=== PATIENT | female | born 1950 | race Two or more races ===

== ENCOUNTER 2016-08-20 09:33 | Outpatient (CLI) | payer MEDICARE, BC | END 2016-08-20 23:59 | disposition home or self-care (01) | LOC: WOU 09:33 | PROVIDERS: ATTEND Specialist | DX: T81.89XD Other complications of procedures, not elsewhere classified, subsequent encounter (principal); G71.0 Muscular dystrophy; L97.221 Non-pressure chronic ulcer of left calf limited to breakdown of skin | CPT/HCPCS: A6197; A6402; G0463 ==

== ENCOUNTER 2016-08-27 10:55 | Outpatient (CLI) | payer MEDICARE, BC ==
[2016-08-28 12:24] LABS: *ANAANTI-SCLERODERMA-70 AB <0.2 AI (0.0-0.9)
[2016-08-29 11:34] LABS: *ANCANTIPROTEINASE 3 (PR-3) AB <3.5 U/mL (0.0-3.5)
== END 2016-08-27 23:59 | disposition home or self-care (01) ==
LOC: WOU 10:55
PROVIDERS: ATTEND Specialist
DX: T81.31XA Disruption of external operation (surgical) wound, not elsewhere classified, initial encounter (principal); L97.221 Non-pressure chronic ulcer of left calf limited to breakdown of skin; G71.0 Muscular dystrophy
CPT/HCPCS: 17250; 36415; 83520; 85652-TC; 86140-TC; 86225; 86235; 86256; 86431-TC; 87070-TC; 87075-TC; 87186-TC; A6197; A6402

== ENCOUNTER 2016-09-02 13:07 | Outpatient (CLI) | payer MEDICARE, BC | END 2016-09-02 23:59 | disposition home or self-care (01) | LOC: WOU 13:07 | PROVIDERS: ATTEND Specialist | DX: L97.221 Non-pressure chronic ulcer of left calf limited to breakdown of skin (principal) ==

== ENCOUNTER 2016-09-03 11:00 | Outpatient (CLI) | payer MEDICARE, BC | END 2016-09-03 23:59 | disposition home or self-care (01) | LOC: WOU 11:00 | PROVIDERS: ATTEND Specialist | DX: T81.31XD Disruption of external operation (surgical) wound, not elsewhere classified, subsequent encounter (principal); L97.221 Non-pressure chronic ulcer of left calf limited to breakdown of skin; G71.0 Muscular dystrophy; I87.2 Venous insufficiency (chronic) (peripheral) | CPT/HCPCS: 93923; A6402; A6452 ×2; G0463 ==

== ENCOUNTER 2016-09-10 14:15 | Outpatient (CLI) | payer MEDICARE, BC | END 2016-09-10 23:59 | disposition home or self-care (01) | LOC: WOU 14:15 | PROVIDERS: ATTEND Specialist | DX: T81.31XD Disruption of external operation (surgical) wound, not elsewhere classified, subsequent encounter (principal); L97.221 Non-pressure chronic ulcer of left calf limited to breakdown of skin; G71.0 Muscular dystrophy; I87.2 Venous insufficiency (chronic) (peripheral); Z85.828 Personal history of other malignant neoplasm of skin | CPT/HCPCS: A6402; A6452; G0463 ==

== ENCOUNTER 2016-09-17 10:52 | Outpatient (CLI) | payer MEDICARE, BC | END 2016-09-17 23:59 | disposition home or self-care (01) | LOC: WOU 10:52 | PROVIDERS: ATTEND Specialist | DX: T81.31XA Disruption of external operation (surgical) wound, not elsewhere classified, initial encounter (principal); T81.89XA Other complications of procedures, not elsewhere classified, initial encounter; L97.221 Non-pressure chronic ulcer of left calf limited to breakdown of skin; G71.0 Muscular dystrophy; E87.2 Acidosis | CPT/HCPCS: 15271; A6253; A6402; A6452 ==

== ENCOUNTER 2016-09-24 13:00 | Outpatient (CLI) | payer MEDICARE, BC | END 2016-09-24 23:59 | disposition home or self-care (01) | LOC: WOU 13:00 | PROVIDERS: ATTEND Specialist | DX: T81.89XA Other complications of procedures, not elsewhere classified, initial encounter (principal); T81.31XA Disruption of external operation (surgical) wound, not elsewhere classified, initial encounter; L97.221 Non-pressure chronic ulcer of left calf limited to breakdown of skin; G71.0 Muscular dystrophy; I87.2 Venous insufficiency (chronic) (peripheral) | CPT/HCPCS: 15271; A6253; A6402; A6452 ==

== ENCOUNTER 2016-10-01 13:45 | Outpatient (CLI) | payer MEDICARE, BC | END 2016-10-01 23:59 | disposition home or self-care (01) | LOC: WOU 13:45 | PROVIDERS: ATTEND Specialist | DX: T81.31XA Disruption of external operation (surgical) wound, not elsewhere classified, initial encounter (principal); L97.221 Non-pressure chronic ulcer of left calf limited to breakdown of skin; G71.0 Muscular dystrophy; I87.2 Venous insufficiency (chronic) (peripheral); T81.89XA Other complications of procedures, not elsewhere classified, initial encounter | CPT/HCPCS: 11042; 87070; 87077; 87186; A6209; A6402 ==

== ENCOUNTER 2016-10-06 11:22 | Outpatient (CLI) | payer MEDICARE, BC | END 2016-10-06 23:59 | disposition home or self-care (01) | LOC: WOU 11:22 | PROVIDERS: ATTEND Surgery | DX: T81.31XA Disruption of external operation (surgical) wound, not elsewhere classified, initial encounter (principal); T81.89XA Other complications of procedures, not elsewhere classified, initial encounter; L97.221 Non-pressure chronic ulcer of left calf limited to breakdown of skin; G71.0 Muscular dystrophy; Z85.9 Personal history of malignant neoplasm, unspecified | CPT/HCPCS: 11042; A6402 ×2 ==

== ENCOUNTER 2016-10-07 10:00 | Outpatient (CLI) | payer MEDICARE, BC | END 2016-10-07 23:59 | disposition home or self-care (01) | LOC: WOU 10:00 | PROVIDERS: ATTEND Surgery | DX: S81.802D Unspecified open wound, left lower leg, subsequent encounter (principal); X58.XXXD Exposure to other specified factors, subsequent encounter; M79.89 Other specified soft tissue disorders | CPT/HCPCS: 93925-TC; 93926-TC; 93971-TC ==

== ENCOUNTER 2016-10-08 11:58 | Outpatient (CLI) | payer MEDICARE, BC ==
[2016-10-08 12:30] LABS: BASOPHILS % (AUTO) 0.7 % (0.0-2.0); DIFF TOTAL % 100 %; EOSINOPHILS # (AUTO) 0.1 /CMM (0.0-0.7); EOSINOPHILS % (AUTO) 1.4 % (0.0-6.0); HEMATOCRIT 37 % (33-45); HEMOGLOBIN 11.4 g/dL (11.5-14.8); LYMPHOCYTES # (AUTO) 2.3 /CMM (0.8-4.8); LYMPHOCYTES % (AUTO) 35.4 % (20.0-44.0); MEAN CORPUSCULAR HEMOGLOBIN 21 PG (26.0-33.0); MEAN CORPUSCULAR HGB CONC 31 g/dl (31.0-36.0); MEAN CORPUSCULAR VOLUME 68 fL (82-100); MONOCYTES # (AUTO) 0.4 /CMM (0.1-1.30); MONOCYTES % (AUTO) 6.9 % (2.0-12.0); NEUTROPHILS # (AUTO) 3.6 /CMM (1.8-8.9); NEUTROPHILS % (AUTO) 55.6 % (43.0-81.0); PLATELET COUNT (AUTO) 271 /CMM (150-450); RED BLOOD CELL COUNT(AUTO) 5.51 MIL/uL (4.0-5.2); WHITE BLOOD COUNT (AUTO) 6.4 K/uL (4.3-11.0)
[2016-10-08 12:43] LABS: BAND % (MANUAL) 1 % (0.0-5.0); EOSINOPHILS % (MANUAL) 2 % (0-4); LYMPHOCYTES % (MANUAL) 39 % (16-48); PLATELET ESTIMATE ADEQUATE
[2016-10-08 12:44] LABS: ANISOCYTOSIS 2+; HYPOCHROMASIA 2+; MICROCYTOSIS 2+; SPHEROCYTES 1+
[2016-10-08 12:45] LABS: POLYCHROMASIA 1+
[2016-10-08 12:48] LABS: PREALBUMIN 14.9 MG/DL (18.0-35.7)
[2016-10-08 12:51] LABS: ALBUMIN 4.2 g/dL (3.4-5.0); BILIRUBIN,TOTAL 0.9 mg/dL (0.2-1.0); CALCIUM, SERUM 9.1 mg/dL (8.5-10.1); CREATININE 0.3 mg/dL (0.6-1.3); POTASSIUM 4.3 mmol/L (3.5-5.1); TOTAL PROTEIN, SERUM 7.7 g/dL (6.4-8.2)
== END 2016-10-08 23:59 | disposition home or self-care (01) ==
LOC: LAB 11:58
PROVIDERS: ATTEND Surgery
DX: L97.829 Non-pressure chronic ulcer of other part of left lower leg with unspecified severity (principal)
CPT/HCPCS: 36415; 80053-TC; 84134-TC; 85025-TC

== ENCOUNTER 2016-10-09 11:44 | Outpatient (CLI) | payer MEDICARE, BC | END 2016-10-09 23:59 | disposition home or self-care (01) | DX: T81.31XA Disruption of external operation (surgical) wound, not elsewhere classified, initial encounter (principal); I70.262 Atherosclerosis of native arteries of extremities with gangrene, left leg; L97.821 Non-pressure chronic ulcer of other part of left lower leg limited to breakdown of skin; G71.0 Muscular dystrophy; R60.0 Localized edema | CPT/HCPCS: 11042; 88305 ×2; 88312; A6209; A6402; J3490 ==

== ENCOUNTER 2016-10-16 11:50 | Outpatient (CLI) | payer MEDICARE, BC ==
[2016-10-16] MEDS ORDERED: ETHYL CHLORIDE SPRAY 1 EA BOTTLE TP ONE (13:30)
== END 2016-10-16 23:59 | disposition home or self-care (01) ==
LOC: WOU 11:50
PROVIDERS: ATTEND Surgery
DX: L97.221 Non-pressure chronic ulcer of left calf limited to breakdown of skin (principal); T81.89XD Other complications of procedures, not elsewhere classified, subsequent encounter; T81.31XD Disruption of external operation (surgical) wound, not elsewhere classified, subsequent encounter; I87.2 Venous insufficiency (chronic) (peripheral); G71.0 Muscular dystrophy; D56.3 Thalassemia minor; I70.209 Unspecified atherosclerosis of native arteries of extremities, unspecified extremity; Z85.828 Personal history of other malignant neoplasm of skin
CPT/HCPCS: 11042; A6209; A6402; J3490

== ENCOUNTER 2016-10-17 09:21 | Outpatient (CLI) | payer MEDICARE, BC ==
[2016-10-17] MEDS ORDERED: IV NS 0.9% 250 ML IV ONE (09:51)
[2016-10-17] MEDS ORDERED: IOHEXOL-350 100 ML VIAL IV ONE (09:51)
[2016-10-17] MEDS ORDERED: CT SWABBABLE VALVE TRANS SET 1 EA INFUS.SET MC ONE (09:51)
== END 2016-10-17 23:59 | disposition home or self-care (01) ==
LOC: CT 09:21
PROVIDERS: ATTEND Podiatrist Foot & Ankle Surgery
DX: S80.922A Unspecified superficial injury of left lower leg, initial encounter (principal); I73.9 Peripheral vascular disease, unspecified; I70.0 Atherosclerosis of aorta; M62.562 Muscle wasting and atrophy, not elsewhere classified, left lower leg; M62.561 Muscle wasting and atrophy, not elsewhere classified, right lower leg; R60.1 Generalized edema; X58.XXXA Exposure to other specified factors, initial encounter; Y99.8 Other external cause status; Y92.89 Other specified places as the place of occurrence of the external cause; Y93.89 Activity, other specified
CPT/HCPCS: 75635; J7050; Q9967

== ENCOUNTER 2016-10-23 15:45 | Outpatient (CLI) | payer MEDICARE, BC | END 2016-10-23 23:59 | disposition home or self-care (01) | LOC: WOU 15:45 | PROVIDERS: ATTEND Surgery | DX: T81.89XA Other complications of procedures, not elsewhere classified, initial encounter (principal); I70.203 Unspecified atherosclerosis of native arteries of extremities, bilateral legs; G71.0 Muscular dystrophy; R60.0 Localized edema; F32.9 Major depressive disorder, single episode, unspecified; L97.221 Non-pressure chronic ulcer of left calf limited to breakdown of skin; Z85.828 Personal history of other malignant neoplasm of skin; E88.09 Other disorders of plasma-protein metabolism, not elsewhere classified | CPT/HCPCS: A6209; A6402; G0463 ==

== ENCOUNTER 2016-10-30 14:47 | Outpatient (CLI) | payer MEDICARE, BC | END 2016-10-30 23:59 | disposition home or self-care (01) | LOC: WOU 14:47 | PROVIDERS: ATTEND Surgery | DX: T81.89XD Other complications of procedures, not elsewhere classified, subsequent encounter (principal); T81.31XD Disruption of external operation (surgical) wound, not elsewhere classified, subsequent encounter; L97.221 Non-pressure chronic ulcer of left calf limited to breakdown of skin; G71.0 Muscular dystrophy; F32.9 Major depressive disorder, single episode, unspecified; R45.4 Irritability and anger; Z91.19 Patient's noncompliance with other medical treatment and regimen; I70.209 Unspecified atherosclerosis of native arteries of extremities, unspecified extremity | CPT/HCPCS: 11043; A6402; J3490 ==

== ENCOUNTER 2016-11-03 12:30 | Outpatient (CLI) | payer MEDICARE, BC | END 2016-11-03 23:59 | disposition home or self-care (01) | LOC: WOU 12:30 | PROVIDERS: ATTEND Surgery | DX: T81.31XD Disruption of external operation (surgical) wound, not elsewhere classified, subsequent encounter (principal); T81.89XD Other complications of procedures, not elsewhere classified, subsequent encounter; G71.0 Muscular dystrophy; L97.221 Non-pressure chronic ulcer of left calf limited to breakdown of skin; I70.209 Unspecified atherosclerosis of native arteries of extremities, unspecified extremity; F32.9 Major depressive disorder, single episode, unspecified; R45.4 Irritability and anger; L53.9 Erythematous condition, unspecified; R60.0 Localized edema | CPT/HCPCS: A6197; A6402; G0463 ==

== ENCOUNTER 2016-11-04 11:33 | Outpatient (CLI) | payer MEDICARE, BC | END 2016-11-04 23:59 | disposition home or self-care (01) | LOC: WOU 11:33 | PROVIDERS: ATTEND Surgery | DX: M79.605 Pain in left leg (principal); M79.89 Other specified soft tissue disorders | CPT/HCPCS: 93971-TC ==

== ENCOUNTER 2016-11-04 14:45 | Outpatient (CLI) | payer MEDICARE, BC | END 2016-11-04 23:59 | disposition home or self-care (01) | LOC: VASLAB 14:45 | PROVIDERS: ATTEND Surgery Vascular Surgery | DX: T81.89XA Other complications of procedures, not elsewhere classified, initial encounter (principal); L03.116 Cellulitis of left lower limb; D56.3 Thalassemia minor; G71.0 Muscular dystrophy; M81.0 Age-related osteoporosis without current pathological fracture; Z85.828 Personal history of other malignant neoplasm of skin | CPT/HCPCS: A6197; A6402; G0463 ==

== ENCOUNTER 2016-11-06 11:04 | Outpatient (CLI) | payer MEDICARE, BC | END 2016-11-06 23:59 | disposition home or self-care (01) | LOC: WOU 11:04 | PROVIDERS: ATTEND Podiatrist Foot & Ankle Surgery | DX: T81.31XD Disruption of external operation (surgical) wound, not elsewhere classified, subsequent encounter (principal); L97.221 Non-pressure chronic ulcer of left calf limited to breakdown of skin; G71.0 Muscular dystrophy; I87.2 Venous insufficiency (chronic) (peripheral) | CPT/HCPCS: 11042; A6402; A6452 ==

== ENCOUNTER 2016-11-13 11:00 | Outpatient (CLI) | payer MEDICARE, BC | END 2016-11-13 23:59 | disposition home or self-care (01) | LOC: WOU 11:00 | PROVIDERS: ATTEND Podiatrist Foot & Ankle Surgery | DX: G71.0 Muscular dystrophy (principal); T81.89XD Other complications of procedures, not elsewhere classified, subsequent encounter; I70.209 Unspecified atherosclerosis of native arteries of extremities, unspecified extremity; I87.2 Venous insufficiency (chronic) (peripheral); Z85.9 Personal history of malignant neoplasm, unspecified | CPT/HCPCS: 11042; A6402 ==

== ENCOUNTER 2016-11-20 11:59 | Outpatient (CLI) | payer MEDICARE, BC | END 2016-11-20 23:59 | disposition home or self-care (01) | LOC: WOU 11:59 | PROVIDERS: ATTEND Surgery | DX: T81.89XA Other complications of procedures, not elsewhere classified, initial encounter (principal); G71.0 Muscular dystrophy; I87.2 Venous insufficiency (chronic) (peripheral); Z85.828 Personal history of other malignant neoplasm of skin; I70.209 Unspecified atherosclerosis of native arteries of extremities, unspecified extremity; R60.0 Localized edema; F32.9 Major depressive disorder, single episode, unspecified; R45.4 Irritability and anger | CPT/HCPCS: 11042; A6209; A6402 ==

== ENCOUNTER 2016-11-27 13:29 | Outpatient (CLI) | payer MEDICARE, BC | END 2016-11-27 23:59 | disposition home or self-care (01) | LOC: WOU 13:29 | PROVIDERS: ATTEND Surgery | DX: T81.89XA Other complications of procedures, not elsewhere classified, initial encounter (principal); G71.0 Muscular dystrophy; Z85.828 Personal history of other malignant neoplasm of skin; I70.209 Unspecified atherosclerosis of native arteries of extremities, unspecified extremity; R60.0 Localized edema; F32.9 Major depressive disorder, single episode, unspecified; R45.4 Irritability and anger; T81.31XD Disruption of external operation (surgical) wound, not elsewhere classified, subsequent encounter; L97.221 Non-pressure chronic ulcer of left calf limited to breakdown of skin; D56.3 Thalassemia minor | CPT/HCPCS: 11042; A6402 ==

== ENCOUNTER 2016-12-04 13:02 | Outpatient (CLI) | payer MEDICARE, BC | END 2016-12-04 23:59 | disposition home or self-care (01) | LOC: WOU 13:02 | PROVIDERS: ATTEND Surgery | DX: T81.89XA Other complications of procedures, not elsewhere classified, initial encounter (principal); G71.0 Muscular dystrophy; Z85.828 Personal history of other malignant neoplasm of skin; I70.209 Unspecified atherosclerosis of native arteries of extremities, unspecified extremity; R60.0 Localized edema; F32.9 Major depressive disorder, single episode, unspecified; R45.4 Irritability and anger; T81.31XD Disruption of external operation (surgical) wound, not elsewhere classified, subsequent encounter; L97.221 Non-pressure chronic ulcer of left calf limited to breakdown of skin; D56.3 Thalassemia minor | CPT/HCPCS: 11042; A6402 ==

== ENCOUNTER 2016-12-11 13:45 | Outpatient (CLI) | payer MEDICARE, BC | END 2016-12-11 23:59 | disposition home or self-care (01) | LOC: WOU 13:45 | PROVIDERS: ATTEND Surgery | DX: L97.221 Non-pressure chronic ulcer of left calf limited to breakdown of skin (principal); T81.31XD Disruption of external operation (surgical) wound, not elsewhere classified, subsequent encounter; G71.0 Muscular dystrophy; T81.89XD Other complications of procedures, not elsewhere classified, subsequent encounter; R60.0 Localized edema; F32.9 Major depressive disorder, single episode, unspecified; R45.4 Irritability and anger; I73.9 Peripheral vascular disease, unspecified | CPT/HCPCS: 15002; 15110; A6402 ==

== ENCOUNTER 2016-12-18 13:15 | Outpatient (CLI) | payer MEDICARE, BC | END 2016-12-18 23:59 | disposition home or self-care (01) | LOC: WOU 13:15 | PROVIDERS: ATTEND Surgery | DX: T81.31XD Disruption of external operation (surgical) wound, not elsewhere classified, subsequent encounter (principal); L97.221 Non-pressure chronic ulcer of left calf limited to breakdown of skin; G71.0 Muscular dystrophy; R60.0 Localized edema; I73.9 Peripheral vascular disease, unspecified; F32.9 Major depressive disorder, single episode, unspecified; R45.4 Irritability and anger | CPT/HCPCS: A6209; A6253; A6402; G0463 ==

== ENCOUNTER → 2016-12-25 | Outpatient (CLI) | payer MEDICARE, BC | END | disposition home or self-care (01) | LOC: WOU 13:50 | PROVIDERS: ATTEND Surgery | DX: Z48.817 Encounter for surgical aftercare following surgery on the skin and subcutaneous tissue (principal); G71.0 Muscular dystrophy; F32.9 Major depressive disorder, single episode, unspecified; R45.4 Irritability and anger; R60.0 Localized edema; I73.9 Peripheral vascular disease, unspecified; Z85.828 Personal history of other malignant neoplasm of skin | CPT/HCPCS: A6209; A6402; G0463 ==

== ENCOUNTER 2017-01-01 14:19 | Outpatient (CLI) | payer MEDICARE, BC | END 2017-01-01 23:59 | disposition home or self-care (01) | LOC: WOU 14:19 | PROVIDERS: ATTEND Surgery | DX: L97.221 Non-pressure chronic ulcer of left calf limited to breakdown of skin (principal); T81.31XD Disruption of external operation (surgical) wound, not elsewhere classified, subsequent encounter; G71.0 Muscular dystrophy; Z85.9 Personal history of malignant neoplasm, unspecified; I70.209 Unspecified atherosclerosis of native arteries of extremities, unspecified extremity; R60.0 Localized edema; F32.9 Major depressive disorder, single episode, unspecified; R45.4 Irritability and anger | CPT/HCPCS: A6209; A6402 ×2; G0463 ==

== ENCOUNTER 2017-01-08 13:55 | Outpatient (CLI) | payer MEDICARE, BC | END 2017-01-08 23:59 | disposition home or self-care (01) | LOC: WOU 13:55 | PROVIDERS: ATTEND Surgery | DX: T81.31XD Disruption of external operation (surgical) wound, not elsewhere classified, subsequent encounter (principal); L97.221 Non-pressure chronic ulcer of left calf limited to breakdown of skin; G71.0 Muscular dystrophy; Z85.9 Personal history of malignant neoplasm, unspecified; I70.209 Unspecified atherosclerosis of native arteries of extremities, unspecified extremity; R60.0 Localized edema; F32.9 Major depressive disorder, single episode, unspecified; R45.4 Irritability and anger | CPT/HCPCS: A6209; A6402; G0463 ==

== ENCOUNTER 2017-01-15 13:35 | Outpatient (CLI) | payer MEDICARE, BC | END 2017-01-15 23:59 | disposition home or self-care (01) | LOC: WOU 13:35 | PROVIDERS: ATTEND Surgery | DX: T81.31XD Disruption of external operation (surgical) wound, not elsewhere classified, subsequent encounter (principal); L97.221 Non-pressure chronic ulcer of left calf limited to breakdown of skin; G71.0 Muscular dystrophy; I70.209 Unspecified atherosclerosis of native arteries of extremities, unspecified extremity; R60.0 Localized edema; F32.9 Major depressive disorder, single episode, unspecified; R45.4 Irritability and anger | CPT/HCPCS: A6209; A6402; G0463 ==

== ENCOUNTER 2017-01-22 13:40 | Outpatient (CLI) | payer MEDICARE, BC | END 2017-01-22 23:59 | disposition home or self-care (01) | LOC: WOU 13:40 | PROVIDERS: ATTEND Surgery | DX: T81.31XD Disruption of external operation (surgical) wound, not elsewhere classified, subsequent encounter (principal); L97.221 Non-pressure chronic ulcer of left calf limited to breakdown of skin; G71.0 Muscular dystrophy; I70.209 Unspecified atherosclerosis of native arteries of extremities, unspecified extremity; R60.0 Localized edema; F32.9 Major depressive disorder, single episode, unspecified; R45.4 Irritability and anger | CPT/HCPCS: A6209; A6402; G0463 ==

== ENCOUNTER 2017-01-29 13:52 | Outpatient (CLI) | payer MEDICARE, BC | END 2017-01-29 23:59 | disposition home or self-care (01) | LOC: WOU 13:52 | PROVIDERS: ATTEND Surgery | DX: T81.31XD Disruption of external operation (surgical) wound, not elsewhere classified, subsequent encounter (principal); L97.221 Non-pressure chronic ulcer of left calf limited to breakdown of skin; G71.0 Muscular dystrophy; I70.209 Unspecified atherosclerosis of native arteries of extremities, unspecified extremity; R60.0 Localized edema; F32.9 Major depressive disorder, single episode, unspecified; R45.4 Irritability and anger | CPT/HCPCS: 97597; A6209 ×3 ==

== ENCOUNTER 2017-02-05 13:11 | Outpatient (CLI) | payer MEDICARE, BC | END 2017-02-05 23:59 | disposition home or self-care (01) | LOC: WOU 13:11 | PROVIDERS: ATTEND Surgery | DX: T81.31XD Disruption of external operation (surgical) wound, not elsewhere classified, subsequent encounter (principal); L97.221 Non-pressure chronic ulcer of left calf limited to breakdown of skin; G71.0 Muscular dystrophy; I70.209 Unspecified atherosclerosis of native arteries of extremities, unspecified extremity; R45.4 Irritability and anger; F32.9 Major depressive disorder, single episode, unspecified; R60.0 Localized edema | CPT/HCPCS: 11042; A6209; A6402 ==

== ENCOUNTER 2017-02-12 13:47 | Outpatient (CLI) | payer MEDICARE, BC | END 2017-02-12 23:59 | disposition home or self-care (01) | LOC: WOU 13:47 | PROVIDERS: ATTEND Surgery | DX: T81.31XD Disruption of external operation (surgical) wound, not elsewhere classified, subsequent encounter (principal); L97.221 Non-pressure chronic ulcer of left calf limited to breakdown of skin; G71.0 Muscular dystrophy; T81.89XD Other complications of procedures, not elsewhere classified, subsequent encounter; I70.209 Unspecified atherosclerosis of native arteries of extremities, unspecified extremity; F32.9 Major depressive disorder, single episode, unspecified; R45.4 Irritability and anger; R60.0 Localized edema | CPT/HCPCS: A6209; A6402; G0463 ==

== ENCOUNTER 2017-02-26 13:30 | Outpatient (CLI) | payer MEDICARE, BC | END 2017-02-26 23:59 | disposition home or self-care (01) | LOC: WOU 13:30 | PROVIDERS: ATTEND Surgery | DX: T81.31XD Disruption of external operation (surgical) wound, not elsewhere classified, subsequent encounter (principal); L97.221 Non-pressure chronic ulcer of left calf limited to breakdown of skin; G71.0 Muscular dystrophy; I73.9 Peripheral vascular disease, unspecified; F32.9 Major depressive disorder, single episode, unspecified; R45.4 Irritability and anger | CPT/HCPCS: A6209 ×2; A6402; G0463 ==

== ENCOUNTER 2017-03-12 13:10 | Outpatient (CLI) | payer MEDICARE, BC | END 2017-03-12 23:59 | disposition home or self-care (01) | LOC: WOU 13:10 | PROVIDERS: ATTEND Surgery | DX: T81.31XD Disruption of external operation (surgical) wound, not elsewhere classified, subsequent encounter (principal); L97.221 Non-pressure chronic ulcer of left calf limited to breakdown of skin; G71.0 Muscular dystrophy; I73.9 Peripheral vascular disease, unspecified; F32.9 Major depressive disorder, single episode, unspecified; R45.4 Irritability and anger | CPT/HCPCS: A6209; A6402; G0463 ==

== ENCOUNTER 2017-04-02 13:00 | Outpatient (CLI) | payer MEDICARE, BC | END 2017-04-02 23:59 | disposition home or self-care (01) | LOC: WOU 13:00 | PROVIDERS: ATTEND Surgery | DX: Z48.817 Encounter for surgical aftercare following surgery on the skin and subcutaneous tissue (principal); G71.0 Muscular dystrophy; F32.9 Major depressive disorder, single episode, unspecified; R45.4 Irritability and anger; I70.209 Unspecified atherosclerosis of native arteries of extremities, unspecified extremity | CPT/HCPCS: G0463 ==

== ENCOUNTER 2017-04-23 13:00 | Outpatient (CLI) | payer MEDICARE, BC | END 2017-04-23 23:59 | disposition home or self-care (01) | LOC: WOU 13:00 | PROVIDERS: ATTEND Surgery | DX: Z09 Encounter for follow-up examination after completed treatment for conditions other than malignant neoplasm (principal); R60.0 Localized edema; I70.209 Unspecified atherosclerosis of native arteries of extremities, unspecified extremity; L53.9 Erythematous condition, unspecified; F32.9 Major depressive disorder, single episode, unspecified; R45.4 Irritability and anger | CPT/HCPCS: A6402; G0463 ==

== ENCOUNTER 2017-04-30 13:33 | Outpatient (CLI) | payer MEDICARE, BC | END 2017-04-30 23:59 | disposition home or self-care (01) | LOC: WOU 13:33 | PROVIDERS: ATTEND Surgery | DX: T81.31XA Disruption of external operation (surgical) wound, not elsewhere classified, initial encounter (principal); I70.209 Unspecified atherosclerosis of native arteries of extremities, unspecified extremity; L53.9 Erythematous condition, unspecified; F32.9 Major depressive disorder, single episode, unspecified; R45.4 Irritability and anger; R60.0 Localized edema | CPT/HCPCS: 17250; A6402 ==

== ENCOUNTER 2017-05-04 13:36 | Outpatient (CLI) | payer MEDICARE, BC | END 2017-05-04 23:59 | disposition home or self-care (01) | LOC: WOU 13:36 | PROVIDERS: ATTEND Surgery | DX: T81.31XA Disruption of external operation (surgical) wound, not elsewhere classified, initial encounter (principal); I70.209 Unspecified atherosclerosis of native arteries of extremities, unspecified extremity; L53.9 Erythematous condition, unspecified; F32.9 Major depressive disorder, single episode, unspecified; R45.4 Irritability and anger; R60.0 Localized edema | CPT/HCPCS: 11042; A6253; A6402 ==

== ENCOUNTER 2017-05-11 14:06 | Outpatient (CLI) | payer MEDICARE, BC | END 2017-05-11 23:59 | disposition home or self-care (01) | LOC: WOU 14:06 | PROVIDERS: ATTEND Surgery | DX: T81.31XA Disruption of external operation (surgical) wound, not elsewhere classified, initial encounter (principal); I70.209 Unspecified atherosclerosis of native arteries of extremities, unspecified extremity; L53.9 Erythematous condition, unspecified; F32.9 Major depressive disorder, single episode, unspecified; R45.4 Irritability and anger; R60.0 Localized edema | CPT/HCPCS: 11042; A6207; A6402 ==

== ENCOUNTER 2017-05-18 13:09 | Outpatient (CLI) | payer MEDICARE, BC | END 2017-05-18 23:59 | disposition home or self-care (01) | LOC: WOU 13:09 | PROVIDERS: ATTEND Surgery | DX: T81.89XA Other complications of procedures, not elsewhere classified, initial encounter (principal); L53.9 Erythematous condition, unspecified; F32.9 Major depressive disorder, single episode, unspecified; R45.4 Irritability and anger; R60.0 Localized edema; G71.0 Muscular dystrophy; Z83.3 Family history of diabetes mellitus; I73.9 Peripheral vascular disease, unspecified | CPT/HCPCS: 11042; A6402 ==

== ENCOUNTER 2017-05-21 13:25 | Outpatient (CLI) | payer MEDICARE, BC | END 2017-05-21 23:59 | disposition home or self-care (01) | LOC: WOU 13:25 | PROVIDERS: ATTEND Surgery | DX: T81.31XA Disruption of external operation (surgical) wound, not elsewhere classified, initial encounter (principal); L97.221 Non-pressure chronic ulcer of left calf limited to breakdown of skin; G71.0 Muscular dystrophy; T86.821 Skin graft (allograft) (autograft) failure; R60.0 Localized edema; I73.9 Peripheral vascular disease, unspecified; F32.9 Major depressive disorder, single episode, unspecified; R45.4 Irritability and anger | CPT/HCPCS: 15271; A6402 ==

== ENCOUNTER 2017-05-25 12:30 | Outpatient (CLI) | payer MEDICARE, BC | END 2017-05-25 23:59 | disposition home or self-care (01) | LOC: WOU 12:30 | PROVIDERS: ATTEND Surgery | DX: T81.31XD Disruption of external operation (surgical) wound, not elsewhere classified, subsequent encounter (principal); L97.221 Non-pressure chronic ulcer of left calf limited to breakdown of skin; G71.0 Muscular dystrophy; T86.821 Skin graft (allograft) (autograft) failure; R60.0 Localized edema; I73.9 Peripheral vascular disease, unspecified; F32.9 Major depressive disorder, single episode, unspecified; R45.4 Irritability and anger | CPT/HCPCS: A6402; G0463 ==

== ENCOUNTER 2017-06-01 13:10 | Outpatient (CLI) | payer MEDICARE, BC | END 2017-06-01 23:59 | disposition home or self-care (01) | LOC: WOU 13:10 | PROVIDERS: ATTEND Podiatrist Foot & Ankle Surgery | DX: T81.31XA Disruption of external operation (surgical) wound, not elsewhere classified, initial encounter (principal); G71.0 Muscular dystrophy; Z85.828 Personal history of other malignant neoplasm of skin; T86.821 Skin graft (allograft) (autograft) failure; I73.9 Peripheral vascular disease, unspecified; R60.0 Localized edema; F32.9 Major depressive disorder, single episode, unspecified; R45.4 Irritability and anger | CPT/HCPCS: 15271; A6402 ==

== ENCOUNTER 2017-06-08 13:39 | Outpatient (CLI) | payer MEDICARE, BC | END 2017-06-08 23:59 | disposition home or self-care (01) | LOC: WOU 13:39 | PROVIDERS: ATTEND Surgery | DX: T81.31XD Disruption of external operation (surgical) wound, not elsewhere classified, subsequent encounter (principal); G71.0 Muscular dystrophy; L97.222 Non-pressure chronic ulcer of left calf with fat layer exposed; T86.821 Skin graft (allograft) (autograft) failure; R60.0 Localized edema; F32.9 Major depressive disorder, single episode, unspecified; R45.4 Irritability and anger | CPT/HCPCS: A6402; G0463 ==

== ENCOUNTER 2017-06-15 13:40 | Outpatient (CLI) | payer MEDICARE, BC | END 2017-06-15 23:59 | disposition home or self-care (01) | LOC: WOU 13:40 | PROVIDERS: ATTEND Surgery | DX: T86.821 Skin graft (allograft) (autograft) failure (principal); T81.31XD Disruption of external operation (surgical) wound, not elsewhere classified, subsequent encounter; L97.222 Non-pressure chronic ulcer of left calf with fat layer exposed; G71.0 Muscular dystrophy; T87.2 Complications of other reattached body part; F32.9 Major depressive disorder, single episode, unspecified; R45.4 Irritability and anger | CPT/HCPCS: 15271; A6402; Q4131 ==

== ENCOUNTER 2017-06-22 13:17 | Outpatient (CLI) | payer MEDICARE, BC | END 2017-06-22 23:59 | disposition home or self-care (01) | LOC: WOU 13:17 | PROVIDERS: ATTEND Surgery | DX: T81.31XA Disruption of external operation (surgical) wound, not elsewhere classified, initial encounter (principal); I73.9 Peripheral vascular disease, unspecified; L97.222 Non-pressure chronic ulcer of left calf with fat layer exposed; G71.0 Muscular dystrophy; T86.821 Skin graft (allograft) (autograft) failure; F32.9 Major depressive disorder, single episode, unspecified; R45.4 Irritability and anger; E46 Unspecified protein-calorie malnutrition; Z68.1 Body mass index [BMI] 19.9 or less, adult | CPT/HCPCS: 15271; A6402; Q4131 ==

== ENCOUNTER 2017-07-06 13:35 | Outpatient (CLI) | payer MEDICARE, BC | END 2017-07-06 23:59 | disposition home or self-care (01) | LOC: WOU 13:35 | PROVIDERS: ATTEND Surgery | DX: T81.89XA Other complications of procedures, not elsewhere classified, initial encounter (principal); I73.9 Peripheral vascular disease, unspecified; R60.0 Localized edema; F32.9 Major depressive disorder, single episode, unspecified; R45.4 Irritability and anger; G71.0 Muscular dystrophy | CPT/HCPCS: 11042; A6402 ==

== ENCOUNTER 2017-07-13 13:41 | Outpatient (CLI) | payer MEDICARE, BC | END 2017-07-13 23:59 | disposition home or self-care (01) | LOC: WOU 13:41 | PROVIDERS: ATTEND Surgery | DX: T81.31XA Disruption of external operation (surgical) wound, not elsewhere classified, initial encounter (principal); L97.222 Non-pressure chronic ulcer of left calf with fat layer exposed; G71.0 Muscular dystrophy; T86.821 Skin graft (allograft) (autograft) failure; R45.4 Irritability and anger; F32.9 Major depressive disorder, single episode, unspecified; I73.9 Peripheral vascular disease, unspecified; R60.0 Localized edema; E46 Unspecified protein-calorie malnutrition; Z68.1 Body mass index [BMI] 19.9 or less, adult | CPT/HCPCS: 15271; A6402; Q4131 ==

== ENCOUNTER 2017-07-20 13:24 | Outpatient (CLI) | payer MEDICARE, BC | END 2017-07-20 23:59 | disposition home or self-care (01) | LOC: WOU 13:24 | PROVIDERS: ATTEND Surgery | DX: T81.31XA Disruption of external operation (surgical) wound, not elsewhere classified, initial encounter (principal); L97.222 Non-pressure chronic ulcer of left calf with fat layer exposed; G71.0 Muscular dystrophy; T86.821 Skin graft (allograft) (autograft) failure; R45.4 Irritability and anger; F32.9 Major depressive disorder, single episode, unspecified; I73.9 Peripheral vascular disease, unspecified; R60.0 Localized edema; E46 Unspecified protein-calorie malnutrition; Z68.1 Body mass index [BMI] 19.9 or less, adult | CPT/HCPCS: 11042; A6402 ==

== ENCOUNTER 2017-07-27 13:20 | Outpatient (CLI) | payer MEDICARE, BC | END 2017-07-27 23:59 | disposition home or self-care (01) | LOC: WOU 13:20 | PROVIDERS: ATTEND Surgery | DX: T81.31XA Disruption of external operation (surgical) wound, not elsewhere classified, initial encounter (principal); L97.222 Non-pressure chronic ulcer of left calf with fat layer exposed; G71.0 Muscular dystrophy; T86.821 Skin graft (allograft) (autograft) failure; I73.9 Peripheral vascular disease, unspecified; Z85.828 Personal history of other malignant neoplasm of skin; R60.0 Localized edema; E46 Unspecified protein-calorie malnutrition; Z68.1 Body mass index [BMI] 19.9 or less, adult; F32.9 Major depressive disorder, single episode, unspecified; R45.4 Irritability and anger | CPT/HCPCS: 15271; A6207; A6402; Q4131 ==

== ENCOUNTER 2017-07-30 11:43 | Outpatient (CLI) | payer MEDICARE, BC | END 2017-07-30 23:59 | disposition home or self-care (01) | LOC: WOU 11:43 | PROVIDERS: ATTEND Surgery | DX: T81.31XD Disruption of external operation (surgical) wound, not elsewhere classified, subsequent encounter (principal); R45.4 Irritability and anger; F32.9 Major depressive disorder, single episode, unspecified; E46 Unspecified protein-calorie malnutrition; Z68.1 Body mass index [BMI] 19.9 or less, adult; G71.0 Muscular dystrophy; T86.821 Skin graft (allograft) (autograft) failure; I70.209 Unspecified atherosclerosis of native arteries of extremities, unspecified extremity | CPT/HCPCS: A6207; A6402; G0463; A6197 ==

== ENCOUNTER 2017-08-03 10:13 | Outpatient (CLI) | payer MEDICARE, BC | END 2017-08-03 23:59 | disposition home or self-care (01) | LOC: WOU 10:13 | PROVIDERS: ATTEND Surgery | DX: T81.31XA Disruption of external operation (surgical) wound, not elsewhere classified, initial encounter (principal); R60.0 Localized edema; I73.9 Peripheral vascular disease, unspecified; L97.922 Non-pressure chronic ulcer of unspecified part of left lower leg with fat layer exposed; G71.0 Muscular dystrophy; F32.9 Major depressive disorder, single episode, unspecified; R45.4 Irritability and anger; E46 Unspecified protein-calorie malnutrition; Z68.1 Body mass index [BMI] 19.9 or less, adult | CPT/HCPCS: 11042; A6402 ==

== ENCOUNTER 2017-08-06 13:31 | Outpatient (CLI) | payer MEDICARE, BC | END 2017-08-06 23:59 | disposition home or self-care (01) | LOC: WOU 13:31 | PROVIDERS: ATTEND Surgery | DX: T81.31XA Disruption of external operation (surgical) wound, not elsewhere classified, initial encounter (principal); L97.222 Non-pressure chronic ulcer of left calf with fat layer exposed; T86.821 Skin graft (allograft) (autograft) failure; E46 Unspecified protein-calorie malnutrition; Z68.1 Body mass index [BMI] 19.9 or less, adult; F32.9 Major depressive disorder, single episode, unspecified; R45.4 Irritability and anger; R60.0 Localized edema; I73.9 Peripheral vascular disease, unspecified | CPT/HCPCS: 11042; A6402 ==

== ENCOUNTER 2017-08-13 11:14 | Outpatient (CLI) | payer MEDICARE, BC | END 2017-08-13 23:59 | disposition home health service (06) | LOC: WOU 11:14 | PROVIDERS: ATTEND Surgery | DX: T81.31XA Disruption of external operation (surgical) wound, not elsewhere classified, initial encounter (principal); L97.222 Non-pressure chronic ulcer of left calf with fat layer exposed; T86.821 Skin graft (allograft) (autograft) failure; E46 Unspecified protein-calorie malnutrition; Z68.1 Body mass index [BMI] 19.9 or less, adult; F32.9 Major depressive disorder, single episode, unspecified; R45.4 Irritability and anger; R60.0 Localized edema; I73.9 Peripheral vascular disease, unspecified | CPT/HCPCS: 11042; A6402 ==

== ENCOUNTER 2017-08-20 12:00 | Outpatient (CLI) | payer MEDICARE, BC | END 2017-08-20 23:59 | disposition home or self-care (01) | LOC: WOU 12:00 | PROVIDERS: ATTEND Surgery | DX: L97.222 Non-pressure chronic ulcer of left calf with fat layer exposed (principal); G71.0 Muscular dystrophy; T86.821 Skin graft (allograft) (autograft) failure; I73.9 Peripheral vascular disease, unspecified; R60.0 Localized edema; E46 Unspecified protein-calorie malnutrition; Z68.1 Body mass index [BMI] 19.9 or less, adult; T81.31XD Disruption of external operation (surgical) wound, not elsewhere classified, subsequent encounter; Z85.828 Personal history of other malignant neoplasm of skin | CPT/HCPCS: 11042; A6402 ==

== ENCOUNTER 2017-08-27 11:08 | Outpatient (CLI) | payer MEDICARE, BC | END 2017-08-27 23:59 | disposition home or self-care (01) | LOC: WOU 11:08 | PROVIDERS: ATTEND Surgery | DX: T81.31XA Disruption of external operation (surgical) wound, not elsewhere classified, initial encounter (principal); L97.222 Non-pressure chronic ulcer of left calf with fat layer exposed; T86.821 Skin graft (allograft) (autograft) failure; I73.9 Peripheral vascular disease, unspecified; R60.0 Localized edema; E46 Unspecified protein-calorie malnutrition; Z68.1 Body mass index [BMI] 19.9 or less, adult; Z85.828 Personal history of other malignant neoplasm of skin | CPT/HCPCS: 11042; A6402 ==

== ENCOUNTER 2017-09-07 12:27 | Outpatient (CLI) | payer MEDICARE, BC | END 2017-09-07 23:59 | disposition home or self-care (01) | LOC: WOU 12:27 | PROVIDERS: ATTEND Surgery | DX: T81.31XA Disruption of external operation (surgical) wound, not elsewhere classified, initial encounter (principal); L97.222 Non-pressure chronic ulcer of left calf with fat layer exposed; G71.0 Muscular dystrophy; T86.821 Skin graft (allograft) (autograft) failure; Z85.828 Personal history of other malignant neoplasm of skin; E46 Unspecified protein-calorie malnutrition; Z68.1 Body mass index [BMI] 19.9 or less, adult; R60.0 Localized edema; I73.9 Peripheral vascular disease, unspecified; R45.4 Irritability and anger; F32.9 Major depressive disorder, single episode, unspecified | CPT/HCPCS: 11042; A6402; A6452 ==

== ENCOUNTER 2017-09-14 12:20 | Outpatient (CLI) | payer MEDICARE, BC | END 2017-09-14 23:59 | disposition home or self-care (01) | LOC: WOU 12:20 | PROVIDERS: ATTEND Surgery | DX: T81.31XA Disruption of external operation (surgical) wound, not elsewhere classified, initial encounter (principal); L97.222 Non-pressure chronic ulcer of left calf with fat layer exposed; G71.0 Muscular dystrophy; T86.821 Skin graft (allograft) (autograft) failure; I73.9 Peripheral vascular disease, unspecified; Z85.828 Personal history of other malignant neoplasm of skin; E46 Unspecified protein-calorie malnutrition; Z68.1 Body mass index [BMI] 19.9 or less, adult | CPT/HCPCS: 15271; A6207; A6402; Q4172 ==

== ENCOUNTER 2017-09-21 13:10 | Outpatient (CLI) | payer MEDICARE, BC | END 2017-09-21 23:59 | disposition home or self-care (01) | LOC: WOU 13:10 | PROVIDERS: ATTEND Surgery | DX: I87.2 Venous insufficiency (chronic) (peripheral) (principal); L97.222 Non-pressure chronic ulcer of left calf with fat layer exposed; G71.0 Muscular dystrophy; T81.31XA Disruption of external operation (surgical) wound, not elsewhere classified, initial encounter; T86.821 Skin graft (allograft) (autograft) failure; Z85.828 Personal history of other malignant neoplasm of skin; R60.0 Localized edema; E46 Unspecified protein-calorie malnutrition; Z68.1 Body mass index [BMI] 19.9 or less, adult; I73.9 Peripheral vascular disease, unspecified | CPT/HCPCS: 15271; A6207; A6402; Q4172 ==

== ENCOUNTER 2017-09-28 13:14 | Outpatient (CLI) | payer MEDICARE, BC | END 2017-09-28 23:59 | disposition home or self-care (01) | LOC: WOU 13:14 | PROVIDERS: ATTEND Surgery | DX: I87.2 Venous insufficiency (chronic) (peripheral) (principal); L97.222 Non-pressure chronic ulcer of left calf with fat layer exposed; T81.31XA Disruption of external operation (surgical) wound, not elsewhere classified, initial encounter; G71.0 Muscular dystrophy; T86.821 Skin graft (allograft) (autograft) failure; E46 Unspecified protein-calorie malnutrition; Z68.1 Body mass index [BMI] 19.9 or less, adult; F32.9 Major depressive disorder, single episode, unspecified; R45.4 Irritability and anger; I73.9 Peripheral vascular disease, unspecified; Z85.828 Personal history of other malignant neoplasm of skin | CPT/HCPCS: 15271; A6207; A6402; Q4172 ×2 ==

== ENCOUNTER 2017-10-05 12:22 | Outpatient (CLI) | payer MEDICARE, BC | END 2017-10-05 23:59 | disposition home or self-care (01) | LOC: WOU 12:22 | PROVIDERS: ATTEND Surgery | DX: T81.31XD Disruption of external operation (surgical) wound, not elsewhere classified, subsequent encounter (principal); I87.2 Venous insufficiency (chronic) (peripheral); G71.0 Muscular dystrophy; R60.0 Localized edema; I73.9 Peripheral vascular disease, unspecified; E46 Unspecified protein-calorie malnutrition; Z68.1 Body mass index [BMI] 19.9 or less, adult; F32.9 Major depressive disorder, single episode, unspecified; R45.4 Irritability and anger | CPT/HCPCS: A6402; G0463 ==

== ENCOUNTER 2017-10-12 12:40 | Outpatient (CLI) | payer MEDICARE, BC | END 2017-10-12 23:59 | disposition home or self-care (01) | LOC: WOU 12:40 | PROVIDERS: ATTEND Surgery | DX: Z48.817 Encounter for surgical aftercare following surgery on the skin and subcutaneous tissue (principal); T81.31XD Disruption of external operation (surgical) wound, not elsewhere classified, subsequent encounter; G71.0 Muscular dystrophy; I87.2 Venous insufficiency (chronic) (peripheral); Z85.828 Personal history of other malignant neoplasm of skin | CPT/HCPCS: G0463 ==

== ENCOUNTER 2017-10-22 11:11 | Outpatient (CLI) | payer MEDICARE, BC | END 2017-10-22 23:59 | disposition home or self-care (01) | LOC: WOU 11:11 | PROVIDERS: ATTEND Surgery | DX: T81.31XD Disruption of external operation (surgical) wound, not elsewhere classified, subsequent encounter (principal); I87.2 Venous insufficiency (chronic) (peripheral); G71.0 Muscular dystrophy; E46 Unspecified protein-calorie malnutrition; Z68.1 Body mass index [BMI] 19.9 or less, adult; F32.9 Major depressive disorder, single episode, unspecified; R45.4 Irritability and anger; Z85.828 Personal history of other malignant neoplasm of skin | CPT/HCPCS: G0463 ==

== ENCOUNTER 2017-11-19 12:55 | Outpatient (CLI) | payer MEDICARE, BC | END 2017-11-19 23:55 | disposition home or self-care (01) | LOC: WOU 12:55 | PROVIDERS: ATTEND Surgery | DX: T81.31XD Disruption of external operation (surgical) wound, not elsewhere classified, subsequent encounter (principal); I87.302 Chronic venous hypertension (idiopathic) without complications of left lower extremity; I73.9 Peripheral vascular disease, unspecified; G71.0 Muscular dystrophy; E46 Unspecified protein-calorie malnutrition; Z68.1 Body mass index [BMI] 19.9 or less, adult; F32.9 Major depressive disorder, single episode, unspecified; R45.4 Irritability and anger; Z85.828 Personal history of other malignant neoplasm of skin | CPT/HCPCS: G0463 ==